=== PATIENT | female | born 2000 | race Caucasian/White ===

== ENCOUNTER 2023-09-23 05:01 | Inpatient (IN) | payer BC, SELFPAY ==
[2023-09-23] VITALS (13 sets, daily range): BP systolic 106–161; BP diastolic 54–88; PULSE 94–141; RESP 16–22; TEMP 36.5–39.3; O2SAT 95–100; BMI 26.6
--- NOTE | ~2023-09-23 | CT_ITS ---
EXAMINATION: CT ABDOMEN AND PELVIS WITH CONTRAST CLINICAL INFORMATION: Right-sided flank pain. White count. Fever. COMPARISON: None available. TECHNIQUE: Multidetector volumetric images were obtained from the superior aspect of the liver through the pubic symphysis following administration 85 mL of Omnipaque 350 intravenous contrast. Sagittal and coronal reformatted images were obtained on the technologist's workstation. Oral contrast: No This CT examination was performed using dose optimization techniques as appropriate, variously including the following: *Automated exposure control *Adjustment of mA and/or kV according to patient size (this includes techniques or standardized protocols for targeted exams where dose is matched to indication/reason for exam; i.e. extremities or head) *Use of iterative reconstruction technique DLP: 677 mGy-cm FINDINGS: LUNG BASES: The visualized lung bases are unremarkable. LIVER, GALLBLADDER, AND BILIARY TREE: The liver is normal in size, shape, and attenuation. No focal hepatic lesion or biliary ductal dilatation is present. The gallbladder is unremarkable with no evidence of radiopaque gallstones, gallbladder wall thickening, or obvious pericholecystic inflammatory changes. PANCREAS: Unremarkable. SPLEEN: Unremarkable. ADRENAL GLANDS: Unremarkable. KIDNEYS AND URETERS: Abnormal. There is distention of the right collecting system with very faint patchy areas of diminished attenuation in the right renal cortex. The right ureter appears slightly dilated and slightly indurated. An obstructing calculus however is not seen. An inflammatory process such as pyelonephritis could have such an appearance. There is a 1 mm punctate stone in the mid right kidney and a 1 mm punctate stone in the left kidney but no evidence for left hydronephrosis. No perinephric collections. BLADDER: Unremarkable. GASTROINTESTINAL TRACT: The small and large bowel are unremarkable. The appendix is unremarkable. ABDOMINAL WALL: No significant hernia is appreciated. LYMPH NODES: Normal. VASCULAR: Unremarkable. PELVIC VISCERA: Unremarkable. OSSEOUS STRUCTURES: Unremarkable. CT/CT abdomen pelvis w IV con IMPRESSION: Query right pyelonephritis. Tiny punctate bilateral nephroliths. No obstructing calculus observed.
[2023-09-23] MEDS: Acetaminophen 325 MG TABLET 975 MG PO ×2 (05:45→22:07)
[2023-09-23 05:46] LABS: MANUAL DIFF FLAG NO
[2023-09-23 05:48] LABS: Appearance Urine Cloudy; Basophils Absolute Auto 0.1 X10*3/uL (0.0-0.2); Basophils Percent Auto 0.3 % (0-2); Color Urine Yellow; Eosinophils Percent Auto 0.1 % (0-4); Glucose Urine UA Negative (Negative); Hematocrit 33.7 % (37.0-47.0); Hemoglobin 11.2 g/dl (12.0-16.0); Imm Gran Abs Auto 0.06 X10*3/uL (0.00-0.03); Imm Gran Pct Auto 0.4 % (0.0-0.4); Leukocyte Esterase Urine Moderate (2+) (Negative); Lymphocytes Absolute Auto 0.9 X10*3/uL (1.2-4.9); Lymphocytes Percent Auto 5.9 % (20-40); Mean Corpuscular HGB Conc 33.2 g/dl (31.0-35.0); Mean Corpuscular Hemoglobin 27.6 pg (27.0-33.0); Mean Platelet Volume 10.9 fL (9.4-12.3); Monocytes Percent Auto 6.4 % (2-11); Neutrophils Absolute Auto 13.8 x10*3/uL (2.0-8.3); Neutrophils Percent Auto 86.9 % (45-73); Nitrite Urine Positive (Negative); PH 5.5 (5.0-9.0); Platelet Count 245 X10*3/uL (160-400); Red Blood Count 4.06 X10*6/uL (4.20-5.50); Red Cell Distribution Width 13.2 % (11.0-16.0); UMIC TRIGGER UACC YES; Urine Blood Small (1+) (Negative); Urine Ketones Negative (Negative); Urine Protein 30 (1+) mg/dL (Neg-Trace); White Blood Count 15.9 X10*3/uL (4.8-10.8)
[2023-09-23 05:49] LABS: UPreg QC Valid YES; Urine Pregnancy NEGATIVE (NEGATIVE)
[2023-09-23 05:53] LABS: Bacteria Urine 4+ (None Seen); Hyaline Casts Urine 0-2 /LPF (0-2); RBC Urine >20 /HPF (0-2); UACC Culture Trigger YES; WBC Urine >50 /HPF (0-5)
[2023-09-23 06:02] LABS: Alanine Aminotransferase 9 U/L (0-31); Albumin Level 3.8 g/dL (3.5-5.0); Alkaline Phosphatase 62 U/L (39-117); Anion Gap 14 (12-20); Aspartate Amino Transferase 13 U/L (5-31); Bilirubin Direct 0.2 mg/dL (0.0-0.5); Bilirubin Total 0.3 mg/dL (0.0-1.0); Blood Urea Nitrogen 7 mg/dL (9-16); Calcium 9.3 mg/dL (8.4-10.2); Carbon Dioxide 23 mmol/L (22-29); Chloride 106 mmol/L (96-108); Creatinine Clr Calc Pharmacy 119.5; Estimated Glomerular Filt Rate > 60; Glucose Random 118 mg/dL (60-115); Lipase 13 U/L (8-78); Potassium 3.7 mmol/L (3.3-5.1); Sodium 139 mmol/L (135-145); Total Protein 7.6 g/dL (6.5-8.0)
[2023-09-23 06:15] LABS: COVID-19 Test Negative (Negative); IDNOW Serial# 08D9AD1C; IDNOW Serial# 152EDE1D; Influenza A Negative (Negative); Influenza B2 Negative (Negative)
--- NOTE | 2023-09-23 06:43 | ED_ITS ---
HPI - General Adult General Chief complaint: Back Pain/Injury Stated complaint: Flank pain Time Seen by Provider: 09/23/23 06:42 Source: patient and family Mode of arrival: ambulatory Limitations: no limitations History of Present Illness HPI narrative: Patient is a 23 yr old female accompanied by her mother presenting with fever, chills, and right sided flank pain for 3 days. Pain is sharp, 6/10 and radiates to her back. She initially had some relief with ibuprofen, but presented to the ED this morning because she was unable to get relief. Reports having a headache, feeling nauseous but has not vomited. States this has never happened to her before. Denies sick contacts, chest pain, SOB, constipation, diarrhea, hx of kidney stones or urinary symptoms. Related Data Allergies Allergy/AdvReac Type Severity Reaction Status Date / Time No Known Allergies Allergy Unverified 05/04/20 17:01 Review of Systems 2 Review of Systems: Constitutional : No Weight loss, + Fever, + Chills, No Fatigue, No Malaise ENT/Mouth : No sore throat, No Rhinorrhea Eyes: No Eye Pain, No Swelling, No Redness Cardiovascular : No Chest Pain, No SOB, No Dyspnea on Exertion, No Orthopnea, No Edema, No Palpitations Respiratory : No Cough, No Sputum, No Wheezing Gastrointestinal : + Nausea, No Vomiting, No Diarrhea, No Constipation, No abdominal Pain, No Hematochezia, No Melena Genitourinary : No Dysuria, No Urinary Frequency, No Hematuria, Musculoskeletal : + back pain. No joint pain, No Myalgias, No Joint Swelling Skin : No Skin Lesions, No rash Neuro : No Weakness, No Numbness, No Dizziness, + Headache Psych : No Anxiety/Panic, No Depression Heme/Lymph: No Bruising, No Bleeding,No Lymphadenopathy Endocrine : No Polyuria, No Polydipsia All other systems reviewed and are negative Yes all other systems are reviewed and are negative [facility] Past Medical History Attestation statement: The following information was validated with the patient. Source: old records reviewed and nursing notes reviewed Social History Social History Advance Directives: No Physical Exam ED Vital Signs: Vital Signs - 24 hr 09/23/23 05:28 09/23/23 08:01 02/06/24 08:41 Temperature 101.1 F H 97.9 F 99.2 F Pulse Rate 137 H 102 H 99 Respiratory Rate 22 H 16 16 Blood Pressure 128/77 120/70 120/82 Pulse Oximetry 96 99 98 Oxygen Delivery Method Room Air Room Air Room Air 09/23/23 09:02 Temperature 99.1 F Pulse Rate 94 Respiratory Rate 16 Blood Pressure 130/65 Pulse Oximetry 98 Oxygen Delivery Method Room Air BMI result Body Mass Index 26.6 vss for fever, tachycardia, and tachypnea. Appearance: Alert.? Oriented X3.? No acute distress.? Head: Normocephalic, atraumatic, no step-offs or deformities Eyes: Pupils equal, round and reactive to light.? CVS: Tachycardic in the 130s. Normal rhythm.? Pulses normal.? Respiratory: No respiratory distress.? Breath sounds normal.? Abdomen: Tenderness to palpation of RUQ. No rebound tenderness. Abdomen otherwise soft and non tender throughout. Bowel sounds present throughout. Negative McBurneys and Rosvings. Skin: Skin warm and dry.? Normal skin color.? Normal skin turgor.? Extremities: No lower extremity edema.? No calf ttp. 5/5 strength to bilateral upper and lower extremities Back: No midline tenderness, no C-spine tenderness, full range of motion, + CVA tenderness on right. Neuro: Oriented X 3.? No motor deficit.? No sensory deficit. CN 2-12 intact Course Reevaluation(s) Reevaluation #1: CBC leukocytosis with left shift. Chemistry no acute findings requiring intervention. Beta hCG negative. Negative lipase. UA with evidence urinary infection positive white blood cells, nitrates, 4+ bacteria. Patient is being treated with ceftriaxone. Influenza, COVID negative. CT scan showing pyelonephritis of the right kidney. Tiny punctate bilateral nephrolithiasis no obstructing calculus noted. Plan is for hospital admission. Time: 09:21 Medications Administered Discontinued Medications Generic Name Dose Route Start Last Admin Trade Name Freq PRN Reason Stop Dose Admin Acetaminophen 975 mg 09/23/23 05:31 09/23/23 05:45 Acetaminophen 325 Mg Tablet PO 09/23/23 05:32 975 mg ONCE ONE Administration Sodium Chloride 2,313.33 mls @ 2,313.33 mls/hr 09/23/23 06:43 09/23/23 08:10 Ns 30 ml/kg infuse over 1 hr (2313.33 ml) 09/23/23 07:42 Infused IV Infusion .Q1H STA Ceftriaxone Sodium 1 gm/ 50 mls @ 100 mls/hr 09/23/23 06:43 09/23/23 07:41 Sodium Chloride IV 09/23/23 07:12 Infused ONCE ONE Infusion Iohexol 100 ml 09/23/23 08:39 09/23/23 08:40 Iohexol 350 Mg/Ml 100 Ml Infus..Btl IV 09/23/23 08:40 85 ml ONCE ONE Administration Medical Decision Making Medical Decision Making [facility] Narrative: 0643 23 yo F presents w/ r flank pain, fevers, chills X 4 days. PE w/ right sided flank pain/ CVA tenderness At this time infection suspected. Sepsis focus exam performed. Hx and PE consistent w/ pylo nephritis vs kidney stone vs complicated UTI. Sepsis cant be excluded. Will rule out electrolyte abnormalities as well. At this time 30 cc / kg bolus as well as fluids ordered. Labs were obtained from triage and upon my review of labs at 642 patient was brought back to the department. Sepsis alter paged overhead. Differential Diagnosis Differential Diagnoses: The differential diagnosis associated with the presentation includes Hx and PE consistent w/ pylo nephritis vs kidney stone vs complicated UTI. Sepsis cant be excluded. Will rule out electrolyte abnormalities as well. Admission/Observation Consideration of admission/observation: Escalation of care including admission/observation considered Lab Data [facility] Lab Attestation statement: I reviewed the patient's lab results. CBC significant for leukocytosis with a left shift. Hgb and Hct low at 11.2 and 33.7 respectively. CMP significant for BUN 7. Lactic acid 1.1 09/23/23 05:38 09/23/23 05:38 Labs: Lab Results 09/23/23 09/23/23 Range/Units 05:38 07:01 WBC 15.9 H (4.8-10.8) X10*3/uL RBC 4.06 L (4.20-5.50) X10*6/uL Hgb 11.2 L (12.0-16.0) g/dl Hct 33.7 L (37.0-47.0) % MCV 83.0 (80.0-98.0) fL MCH 27.6 (27.0-33.0) pg MCHC 33.2 (31.0-35.0) g/dl RDW 13.2 (11.0-16.0) % Plt Count 245 (160-400) X10*3/uL MPV 10.9 (9.4-12.3) fL Immature Gran % (Auto) 0.4 (0.0-0.4) % Neut % (Auto) 86.9 H (45-73) % Lymph % (Auto) 5.9 L (20-40) % Lamar % (Auto) 6.4 (2-11) % Eos % (Auto) 0.1 (0-4) % Baso % (Auto) 0.3 (0-2) % Lymph # (Auto) 0.9 L (1.2-4.9) X10*3/uL Lam[place] # (Auto) 1.0 (0.1-1.2) X10*3/uL Eos # (Auto) 0.0 (0.0-0.4) X10*3/uL Baso # (Auto) 0.1 (0.0-0.2) X10*3/uL Abs Immat Gran (auto) 0.06 H (0.00-0.03) X10*3/uL Absolute Neuts (auto) 13.8 H (2.0-8.3) x10*3/uL Absolute Nucleated RBC 0.000 (0.0-0.012) X10*3/uL Nucleated RBC % (auto) 0.0 (0.0-0.2) /100WBC Sodium 139 (135-145) mmol/L Potassium 3.7 (3.3-5.1) mmol/L Chloride 106 (96-108) mmol/L Carbon Dioxide 23 (22-29) mmol/L Anion Gap 14 (12-20) BUN 7 L (9-16) mg/dL Creatinine 0.79 (0.5-1.4) mg/dL Estim Creat Clear Calc 119.5 Estimated GFR > 60 Random Glucose 118 H (60-115) mg/dL Lactic Acid 1.1 (0.5-2.0) mmol/L Calcium 9.3 (8.4-10.2) mg/dL Total Bilirubin 0.3 (0.0-1.0) mg/dL Direct Bilirubin 0.2 (0.0-0.5) mg/dL AST 13 (5-31) U/L ALT 9 (0-31) U/L Alkaline Phosphatase 62 (39-117) U/L Total Protein 7.6 (6.5-8.0) g/dL Albumin 3.8 (3.5-5.0) g/dL Lipase 13 (8-78) U/L Beta HCG, Quant < 2 mIU/mL Urine Color Yellow Urine Appearance Cloudy Urine pH 5.5 (5.0-9.0) Ur Specific [place] 1.020 (1.005-1.025) Urine Protein 30 (1+) H (Neg-Trace) mg/dL Urine Glucose (UA) Negative (Negative) mg/dL Urine Ketones Negative (Negative) mg/dL Urine Blood Small (1+) H (Negative) Urine Nitrite Positive H (Negative) Ur Leukocyte Esterase Moderate (2+) H (Negative) Urine RBC >20 H (0-2) /HPF Urine WBC >50 H (0-5) /HPF Ur Squamous Epith Cells 3-5 (0-2) /HPF Urine Bacteria 4+ (None Seen) Hyaline Casts 0-2 (0-2) /LPF Urine Test NEGATIVE (NEGATIVE) COVID-19 (DONELL) Negative (Negative) COVID-19 Clin Com See Note Influenza Type A (ANGELES) Negative (Negative) Influenza Type B (ANGELES) Negative (Negative) Influenza A & B Note See Note Independent Interpretation I performed an independent interpretation of an: CT Scan (CT/CT abdomen pelvis w IV con IMPRESSION: Query right pyelonephritis. Tiny punctate bilateral nephroliths. No obstructing calculus observed.) Radiology Impression Discussion of test interpretation with radiology: I have reviewed the radiologist's reading. Radiologist Impression: CT/CT abdomen pelvis w IV con IMPRESSION: Query right pyelonephritis. Tiny punctate bilateral nephroliths. No obstructing calculus observed. Independent Historian Clinical information obtained from an independent historian. History obtained from or confirmed by: Parent Critical Care Time Critical Care Time Critical Care Time: Yes Total Critical Care Time: 45 Attestation: I attest to this time spent taking care of the patient, obtaining history, physical, reviewing labs, imaging, speaking to my attending, speaking to specialist. Discharge Plan Discharge Clinical Impression: Pyelonephritis Patient Disposition: Still a Patient
[2023-09-23] MEDS: 0.9 % Sodium Chloride 2,313.33 ML 2313.33 ML IV (07:10)
[2023-09-23] MEDS: cefTRIAXone sodium 1 GM in 0.9 % Sodium Chloride 50 ML IV (07:11)
[2023-09-23 07:19] LABS: Lactic Acid 1.1 mmol/L (0.5-2.0)
[2023-09-23 07:34] LABS: HCG Quantitative < 2 mIU/mL
[2023-09-23] MEDS: iohexoL 350 MG/ML 100 ML INFUS..BTL IV (08:40)
--- NOTE | 2023-09-23 09:03 | PC.NURSE ---
vss and up to date at this time. oral temperature seems to be increasing at this time compared to last oral temperature. will reassess shortly. pt resting comfortably in stretcher in no apparent distress. no sob/wob noted. respirations even and unlabored. pt waiting for CT results at this time. mother bedside. plan of care ongoing.
--- NOTE | 2023-09-23 10:09 | PHA.MEDREC ---
Pharmacy Consult ? Medication Reconciliation Pharmacy has completed the medication reconciliation. Patient confirmed that she is only taking control (tri lo tha)
[2023-09-23] MEDS: Acetaminophen 325 MG TABLET 650 MG PO ×2 (11:13→16:57)
--- NOTE | 2023-09-23 11:14 | PC.NURSE ---
pt seen by hospitalist/aware of plan of care at this time. pt c/o 5/10 headache and chills. pt remains afebrile at this time. will reassess shortly. otherwise vss and up to date. nsr on the air brush artist. respirations remain even and unlabored. mother bedside for support. call cardozo placed within reach.
--- NOTE | 2023-09-23 12:29 | PC.NURSE ---
reassessed pt's pain level post tylenol administration.pt c/o 05/27 headache. sinus tachy on the playground monitor between 130s-140bpm. tearful/diaphoretic. vss and up to date aside from oral temp of 102.7. rectal temp obtained displaying 102.6. admitting provider notified/aware at this time. respirations remain even and unlabored. family bedside. call cardozo placed within reach.
[2023-09-23] MEDS: Ibuprofen 400 MG TABLET PO (12:44)
--- NOTE | 2023-09-23 12:44 | PC.NURSE ---
medication administered per provider order. will reassess temperature shortly.
--- NOTE | 2023-09-23 12:46 | P.HPHOSP_ITS ---
History of Present Illness Date of Service: 09/23/23 Attending physician on admission: Mason Pagan Chief Complaint: pyelonehritis 23 yr F came with fever, chills, and right sided flank pain for 3 days. Pain is sharp, 6/10 and radiates to her back wth partial relief with ibuprofen, has a headache, feeling nauseous but has not vomited. States this has never happened to her before, so decided to come to hospital. Denies sick contacts, chest pain, SOB, constipation, diarrhea, hx of kidney stones or urinary symptoms. in addition patient has fever tacgcardia,leucocytosis and ua-pyuria/bacturia ,ct abd -shows question of right sided pyelonephritis. patient will admitted for sepsis sec to uti/ Review of Systems 2 Review of Systems: Yes all other systems are reviewed and are negative [facility] Social History Patient Tobacco Use Status: Never used Tobacco Smoked in Last 30 Days: No Use of substances other than those prescribed or required for medical reasons: No Have you been hit, kicked, punched, or otherwise hurt by someone within the past year? If so, by whom?: No Do you feel safe in your current relationship?: Yes Is there a partner from a previous relationship who is making you feel unsafe now?: No Are you made to feel afraid or neglected: No Advance Directives: No Recently lost weight without trying: No Nutrition Risks: No Nutritional Risk Patient : No : No Poor oral hygiene: No Meds Allergies Allergy/AdvReac Type Severity Reaction Status Date / Time No Known Allergies Allergy Unverified 05/04/20 17:01 Active Medications: Current Medications Acetaminophen (Acetaminophen 325 Mg Tablet) 650 mg PO Q6H PRN PRN Reason: Pain, Moderate(Pain Scale 4-6) Last Admin: 09/23/23 11:13 Dose: 650 mg Ceftriaxone Sodium 1 gm/ (Sodium Chloride) 50 mls @ 100 mls/hr IV Q24H [facility] Sodium Chloride (0.9 % Sodium Chloride Flush 3 Ml Syringe) 3 ml IVFLUSH QSHIFT [facility] Home Medications Medication Instructions Recorded Confirmed Last Taken Type norgestimate 0.18 mg/0.215 mg/0.25 1 tab PO DAILY 09/23/23 09/23/23 09/21/23 History mg-ethinyl estradiol 25 mcg tablet ([id number]) Physical Exam 2 Vital Signs and Narrative: Vital Signs: Last Vital Signs Temp 102.6 F H 09/23/23 12:26 Pulse 141 H 09/23/23 12:24 Resp 18 09/23/23 12:24 BP 161/88 H 09/23/23 12:24 Pulse Ox 100 09/23/23 12:24 O2 Del Method Room Air 09/23/23 12:24 BMI result Body Mass Index 26.6 Appearance: Alert.? Oriented X3.? not in distress.? Eyes: Pupils equal, round and reactive to light.? Sclera nonicteric.? ENT: Pharynx normal.? Moist mucous membranes. cvs: rrr, [id number] , no murmur res: clear to auscultation ,no rhonchii or wheezing abd: no rebound or guarding ,nt, bs present.cva tenderness on right side ext pulses present , no cyanosis . neuro: axo3 , nonfocal. Results Labs 09/23/23 05:38 09/23/23 05:38 Labs: Laboratory Results - last 24 hr 09/23/23 09/23/23 05:38 07:01 MCV 83.0 MCH 27.6 MCHC 33.2 RDW 13.2 Plt Count 245 MPV 10.9 Immature Gran % (Auto) 0.4 Neut % (Auto) 86.9 H Lymph % (Auto) 5.9 L [place] % (Auto) 6.4 Eos % (Auto) 0.1 Baso % (Auto) 0.3 Lymph # (Auto) 0.9 L [place] # (Auto) 1.0 Eos # (Auto) 0.0 Baso # (Auto) 0.1 Abs Immat Gran (auto) 0.06 H Absolute Neuts (auto) 13.8 H Absolute Nucleated RBC 0.000 Nucleated RBC % (auto) 0.0 Anion Gap 14 Estim Creat Clear Calc 119.5 Estimated GFR > 60 Random Glucose 118 H Lactic Acid 1.1 Calcium 9.3 Total Bilirubin 0.3 Direct Bilirubin 0.2 AST 13 ALT 9 Alkaline Phosphatase 62 Total Protein 7.6 Albumin 3.8 Lipase 13 Beta HCG, Quant < 2 Urine Color Yellow Urine Appearance Cloudy Urine pH 5.5 Ur Specific Jenn[place] 1.020 Urine Protein 30 (1+) H Urine Glucose (UA) Negative Urine Ketones Negative Urine Blood Small (1+) H Urine Nitrite Positive H Ur Leukocyte Esterase Moderate (2+) H Urine RBC >20 H Urine WBC >50 H Ur Squamous Epith Cells 3-5 Urine Bacteria 4+ Hyaline Casts 0-2 Urine Test NEGATIVE COVID-19 (DONELL) Negative COVID-19 Clin Com See Note Influenza Type A (ANGELES) Negative Influenza Type B (ANGELES) Negative Influenza A & B Note See Note Imaging Radiologist's Impressions: Impressions Abdomen/Pelvis CT 09/23/23 08:41 IMPRESSION: Query right pyelonephritis. Tiny punctate bilateral nephroliths. No obstructing calculus observed. Assessment and Plan (1) Pyelonephritis: Status: Acute Plan 23 yr F came with fever, chills, and right sided flank pain for 3 days sepsis sec to uti/pyelo ua positive and has right cva tenderness has leucocytosis,tachycardia,fever 102*f ,normal lactic blood culture and urine cultures pending continue ceftriaxone dvt prophylax; ambulate ongoing hopsilisation need; sepsis sec to uti /pyelonephritis -need iv antibiotics as well as monitering for worsening of infection ,bactermia(blood culture not back yet) . Quality Stroke Does the patient have a stroke diagnosis?: No VTE Prior VTE?: No VTE Risk Level:: Medical - moderate - high VTE Device Contraindication: N/A - Device Ordered VTE Drug Contraindication: N/A - Med Ordered
--- NOTE | 2023-09-23 13:34 | PC.NURSE ---
pt currently asleep at this time resting in no apparent distress. will reassess temperature when pt wakes up. respirations remain even and unlabored. family bedside. call cardozo placed within reach.
--- NOTE | 2023-09-23 13:57 | PC.NURSE ---
pt's oral temp remains 102.7 despite medication administration at this time. pt still verbalizing chills and 10/10 headache at this time. respirations remain even and unlabored. pt's father bedside. call cardozo placed within reach.
[2023-09-23] MEDS: 0.9 % Sodium Chloride Flush 3 ML SYRINGE IVFLUSH (15:02)
--- NOTE | 2023-09-23 15:28 | PC.NURSE ---
admission worksheet complete. transport notified at this time.
--- NOTE | 2023-09-23 21:57 | PC.NURSE ---
Addendum entered by Sera Hutchinson RN 09/23/23 22:26: Tylenol administered for headache,toradol for pain,ice packs under arms for comfort,IV bolus is infusing as ordered,vs stable documented,mother at patient bedside Original Note: patient crying,c/o Headache ,c/o right flank pain,Dr. Kramer notified
[2023-09-23] MEDS: Ketorolac Tromethamine 30 MG/ML VIAL IVPUSH (22:06)
[2023-09-23] MEDS: 0.9 % Sodium Chloride 1,000 ML 999 ML IV (22:19)
[2023-09-23] MEDS: 0.9 % Sodium Chloride 1,000 ML 150 ML IVCONT (23:36)
[2023-09-24] VITALS (10 sets, daily range): BP systolic 111–129; BP diastolic 59–70; PULSE 86–109; RESP 16–18; TEMP 36.9–38.4; O2SAT 94–99
[2023-09-24] MEDS: Acetaminophen 325 MG TABLET 975 MG PO ×3 (04:08→16:45)
[2023-09-24] MEDS: Ketorolac Tromethamine 30 MG/ML VIAL IVPUSH ×2 (04:45→22:10)
[2023-09-24] MEDS: 0.9 % Sodium Chloride 1,000 ML 150 ML IVCONT ×3 (04:49→19:29)
[2023-09-24] MEDS: cefTRIAXone sodium 1 GM in 0.9 % Sodium Chloride 50 ML IV (06:43)
[2023-09-24] MEDS: NORGESTIMATE ETHINYL ESTRADIOL 1 EACH PO (07:49)
--- NOTE | 2023-09-24 09:38 | MHC.CM.PN ---
Female 23 DX Sepsis UTI She lives with family. She is independent works and drives. A HCP has been documented and placed on the chart. DP home self care. Pts Mother will provide transport home.
[2023-09-24] MEDS: HYDROmorphone HCl 0.5 MG/0.5 ML SYRINGE IVPUSH (09:58)
[2023-09-24] MEDS: ondansetron HCL 4 MG/2 ML VIAL IVPUSH ×2 (09:58→18:10)
--- NOTE | 2023-09-24 16:24 | P.PNIM_ITS ---
Subjective Subjective Date of Service: 09/24/23 Interval History: pyelonehritis Review of Systems Patient had right flank pain, feel nauseated. Physical Exam 2 Vital Signs: Vital Signs: Last Vital Signs Temp 99.3 F 09/24/23 15:15 Pulse 95 09/24/23 15:15 Resp 18 09/24/23 15:15 BP 111/65 09/24/23 15:15 Pulse Ox 99 09/24/23 15:15 O2 Del Method Room Air 09/24/23 15:15 BMI result Body Mass Index 26.6 Appearance: Alert.? Oriented X3.? not in distress.? cvs: rrr, [id number] , no murmur res: clear to auscultation ,no rhonchii or wheezing abd: no rebound or guarding ,nt, bs present.cva tenderness on right side. ext pulses present , no cyanosis . neuro: axo3 , nonfocal. Objective Data Active Medications Acetaminophen (Acetaminophen 325 Mg Tablet) 975 mg PO Q6H PRN PRN Reason: Pain, Moderate(Pain Scale 4-6) Last Admin: 09/24/23 09:41 Dose: 975 mg Documented By: GOLDY Sodium Chloride (Ns) 1,000 mls @ 150 mls/hr IVCONT .Q6H40M [facility] Last Admin: 09/24/23 12:49 Dose: 150 mls/hr Documented By: GOLDY Ceftriaxone Sodium 2 gm/ (Sodium Chloride) 50 mls @ 100 mls/hr IV Q24H [facility] Ketorolac Tromethamine (Ketorolac Tromethamine 30 Mg/Ml Vial) 30 mg IVPUSH Q6H PRN PRN Reason: Pain, Severe (Pain Scale 7-10) Last Admin: 09/24/23 04:45 Dose: 30 mg Documented By: DERRICK Pt Own (Norgestimate -Ethinyl Estradiol [ [id number]] 0.18/0.215/0.25 M 1 tab PO DAILY [facility] Last Admin: 09/24/23 07:49 Dose: 1 tab Documented By: GOLDY Ondansetron HCl (Ondansetron Hcl 4 Mg/2 Ml Vial) 4 mg IVPUSH Q4H PRN PRN Reason: Nausea and Vomiting Last Admin: 09/24/23 09:58 Dose: 4 mg Documented By: GOLDY Sodium Chloride (0.9 % Sodium Chloride Flush 3 Ml Syringe) 3 ml IVFLUSH QSHIFT [facility] Last Admin: 09/24/23 15:19 Dose: Not Given Documented By: GOLDY Non-Admin Reason: IV Running Labs 09/23/23 05:38 09/23/23 05:38 Microbiology Microbiology Results: Microbiology 09/23/23 Unknown Urine Culture - Preliminary Urine clean catch - Urine morales top Gram negative silvestre 09/23/23 07:01 Blood Culture - Preliminary Blood - Venous Gram negative silvestre 09/23/23 07:01 Blood Culture - Preliminary Blood - Venous Gram negative silvestre Assessment and Plan (1) Pyelonephritis: Status: Acute Plan 23 yr F came with fever, chills, and right sided flank pain for 3 days sepsis sec to uti/pyelo still symtomatic ua positive and has right cva tenderness has leucocytosis,tachycardia,fever improving ,normal lactic blood culture and urine cultures pending,need iv pain meds (toradol+added dilaudid). continue ceftriaxone started on 09/23/23. dvt prophylax; ambulate ongoing hopsilisation need; sepsis sec to uti /pyelonephritis -need iv antibiotics as well as monitering for worsening of infection ,bactermia(blood culture not back yet) . Quality Stroke Does the patient have a stroke diagnosis?: No VTE Prior VTE?: No VTE Risk Level:: Medical - moderate - high VTE Device Contraindication: N/A - Device Ordered VTE Drug Contraindication: N/A - Med Ordered
[2023-09-25] MEDS: 0.9 % Sodium Chloride 1,000 ML 150 ML IVCONT ×2 (01:28→08:28)
[2023-09-25] MEDS: Acetaminophen 325 MG TABLET 975 MG PO ×2 (01:32→07:45)
[2023-09-25 03:47] VITALS: BP 126/60; PULSE 94; RESP 16; TEMP 36.7; O2SAT 96
[2023-09-25] MEDS: NORGESTIMATE ETHINYL ESTRADIOL 1 EACH PO (07:25)
[2023-09-25] MEDS: cefTRIAXone sodium 2 GM in 0.9 % Sodium Chloride 50 ML IV (07:32)
[2023-09-25 07:51] VITALS: BP 127/80; PULSE 80; RESP 14; TEMP 36.1; O2SAT 99
[2023-09-25 09:58] LABS: Hematocrit 31.3 % (37.0-47.0); Hemoglobin 10.2 g/dl (12.0-16.0); Mean Corpuscular HGB Conc 32.6 g/dl (31.0-35.0); Mean Corpuscular Hemoglobin 27.1 pg (27.0-33.0); Mean Platelet Volume 10.8 fL (9.4-12.3); Platelet Count 243 X10*3/uL (160-400); Red Blood Count 3.77 X10*6/uL (4.20-5.50); Red Cell Distribution Width 13.6 % (11.0-16.0); White Blood Count 12.1 X10*3/uL (4.8-10.8)
--- NOTE | 2023-09-25 10:17 | MHC.CM.PN ---
EMR reviewed. Per MD rounds patient is medically cleared for dc home self care. Mother is at bedside to transport.
[2023-09-25 10:18] LABS: Anion Gap 12 (12-20); Blood Urea Nitrogen 3 mg/dL (9-16); Calcium 8.5 mg/dL (8.4-10.2); Carbon Dioxide 23 mmol/L (22-29); Chloride 110 mmol/L (96-108); Creatinine Clr Calc Pharmacy 157.4; Estimated Glomerular Filt Rate > 60; Glucose Random 146 mg/dL (60-115); Potassium 3.2 mmol/L (3.3-5.1); Sodium 142 mmol/L (135-145)
[2023-09-25] MEDS: cefuroxime axetiL 500 MG TABLET PO (10:21)
--- NOTE | 2023-09-25 11:00 | PM.DS ---
DS: Providers Provider Date of Service: 09/25/23 Date of admission: 09/23/23 10:35 Date of discharge: 09/25/23 Primary care physician: Anastasiia Chamberlain NP Attending physician on discharge: Mason Pagan Discharging clinician: Mason Pagan DS: Diagnosis Discharge Diagnosis (1) Pyelonephritis: Status: Acute (2) Sepsis: Status: Acute DS: Summary Hospital Course Hospital Course: 23 yr F came with fever, chills, and right sided flank pain for 3 days. Pain is sharp, 6/10 and radiates to her back wth partial relief with ibuprofen, has a headache, feeling nauseous but has not vomited. States this has never happened to her before, so decided to come to hospital. Denies sick contacts, chest pain, SOB, constipation, diarrhea, hx of kidney stones or urinary symptoms. in addition patient has fever tacgcardia,leucocytosis and ua-pyuria/bacturia ,ct abd -shows question of right sided pyelonephritis. patient will admitted for sepsis sec to uti. Hospital course: Patient was admitted to the hospital because of right flank pain, urinalysis shows pyuria and bacteriuria as well as had CVA tenderness, blood culture and urine cultures sent and subsequently started on IV ceftriaxone, pain medication, IV hydration: Patient seems to be improved significantly with supportive care and her blood culture and urine culture grew E coli sensitive to ceftriaxone, hence patient was switched to Ceftin 500 mg p.o. b.i.d. for 2 weeks. Follow-up with PCP out patiently. plan: Ceftin 500 mg p.o. b.i.d. for 2 weeks. Above management discussed with the patient detail length with her mother present-the both understand and and in agreement with the above plan, time spent 50 minute. Time Attestation Discharge coordination time: Greater than 30 minutes Quality: Safe Use of Opioids Does Pt have an Active Cancer Diagnosis on the Problem List?: No Quality: Stroke Does the patient have a stroke diagnosis?: No Physical Exam Vital Signs: Vital Signs: Last Vital Signs Temp 97.0 F 09/25/23 07:51 Pulse 80 09/25/23 07:51 Resp 14 09/25/23 07:51 BP 127/80 09/25/23 07:51 Pulse Ox 99 09/25/23 07:51 O2 Del Method Room Air 09/25/23 07:51 BMI result Body Mass Index 26.6 Appearance: Alert.? Oriented X3.? not in distress.? cvs: rrr, [id number] , no murmur res: clear to auscultation ,no rhonchii or wheezing abd: no rebound or guarding ,nt, bs present.. ext pulses present , no cyanosis . neuro: axo3 , nonfocal. DS: Data Data Completed and Pending Labs on day of discharge: Laboratory Results - last 24 hr 09/25/23 09:42 WBC 12.1 H RBC 3.77 L Hgb 10.2 L Hct 31.3 L MCV 83.0 MCH 27.1 MCHC 32.6 RDW 13.6 Plt Count 243 MPV 10.8 Absolute Nucleated RBC 0.000 Nucleated RBC % (auto) 0.0 Sodium 142 Potassium 3.2 L Chloride 110 H Carbon Dioxide 23 Anion Gap 12 BUN 3 L Creatinine 0.60 Estim Creat Clear Calc 157.4 Estimated GFR > 60 Random Glucose 146 H Calcium 8.5 D Imaging Chest x-ray: Radiologist's impression: ITS Impressions Abdomen/Pelvis CT 09/23/23 08:41 IMPRESSION: Query right pyelonephritis. Tiny punctate bilateral nephroliths. No obstructing calculus observed. Discharge Plan Discharge Anticipated Discharge Date/Time: 09/25/23 10:57 Patient Disposition: Home, Self-Care Discharge Diagnosis: sepsis sec to uti,pyelonephritis Referrals: Anastasiia Chamberlain, [employer] [Primary Care Provider] - 1 Week Discharge Medications: New cefuroxime axetil 500 mg tablet 500 mg PO BID Qty: 28 0RF Continued norgestimate-ethinyl estradiol [[id number]] 0.18/0.215/0.25 mg-25 mcg tablet 1 tab PO DAILY Discharge Orders: Discharge Order (Routine); Ordered 09/25/23 Ordered By: Mason Pagan Diet: Advance to usual diet Activity on Discharge: As tolerated Stand Alone Forms: Patient Portal Discharge page Care Plan Goals: Patient was admitted to the hospital because of right flank pain, urinalysis shows pyuria and bacteriuria as well as had CVA tenderness, blood culture and urine cultures sent and subsequently started on IV ceftriaxone, pain medication, IV hydration: Patient seems to be improved significantly with supportive care and her blood culture and urine culture grew E coli sensitive to ceftriaxone, hence patient was switched to Ceftin 500 mg p.o. b.i.d. for 2 weeks. Follow-up with PCP out patiently. Health Concerns: As above. Plan of Treatment: As above. Assessment: As above. Patient Instructions: Urinary Tract Infection in Women (DC), Sepsis (GEN)
--- NOTE | 2023-09-25 14:53 | P.CDIM_ITS ---
PROVIDER RESPONSE TEXT: To clarify, the appropriate diagnosis supported by the clinical indicators: Acute QUERY TEXT: PHYSICIAN'S DOCUMENTATION REQUEST Date of Query: 09/25/2023 09:36 AM EST Patient Name: Perla Roberto Admit Date: 09/23/2023 Dear Mason Pagan, A review of the medical record indicates additional documentation may be needed. Please review below and update the documentation accordingly. Clinical Indicators: Per Hospitalist Progress Note 09/24/23: sepsis sec to uti /pyelonephritis -need iv antibiotics Clarify which of the following accurately represents the acuity of the Pyelonephritis. Possible options might include: Acute Acute on chronic Compensated Chronic stable condition Remission Other (explain) Clinically unable to determine (explain) Thank you, Catarina Rose RN Use of terms such as suspected, likely, concern for, or probable (associated with a specific diagnosi s that is being evaluated, monitored, or treated as if it exists) are acceptable and can be coded in the inpatient se tting, when documented at the time of discharge. Please use your independent medical judgment in providing your response. THIS QUERY IS PART OF THE PERMANENT MEDICAL RECORD
== END 2023-09-25 11:44 | disposition home or self-care (01) | DRG 720 ==
LOC: HO.ED 09:22 → HO.EDOVER 10:40 → HO.S3 15:02
PROVIDERS: Physician Assistant; Admitting Provider Internal Medicine; Emergency Provider Emergency Medicine; PCP Nurse Practitioner; Visit Provider Internal Medicine
DX: A41.9 Sepsis, unspecified organism (principal); N10 Acute pyelonephritis; Z20.822 Contact with and (suspected) exposure to COVID-19; B96.20 Unspecified Escherichia coli [E. coli] as the cause of diseases classified elsewhere
CPT/HCPCS: 36415; 74177; 80048; 80076; 81001; 81025; 83605; 83690; 84702; 85025; 85027; 87040; 87077; 87086; 87088; 87186; 87205; 87502; 87635; 99285; J0696; J1170; J1885; J2405; Q9967

== ENCOUNTER → 2023-09-23 10:35 | Outpatient (BNV) | payer BC, SELFPAY | PROVIDERS: Admitting Provider Internal Medicine; Emergency Provider Emergency Medicine; PCP Nurse Practitioner; Visit Provider Internal Medicine | DX: N12 Tubulo-interstitial nephritis, not specified as acute or chronic (principal); A41.9 Sepsis, unspecified organism; N39.0 Urinary tract infection, site not specified | CPT/HCPCS: 99222; 99232; 99239 ==